=== PATIENT | female | born 1955 | race Caucasian/White ===

== ENCOUNTER 2017-05-03 14:12 | Emergency (ER) | payer OTHER ==
[~2017-05-03] VITALS: Ht 154.9 cm; Wt 113.4 kg
[~2017-05-03 14:12] MED LIST: ACTOS15 MG PO; ADVAIR HFA115 MCG/21 INH; ALBUTEROL SULFATE INH; ALEVE220 MG PO; AMITRIPTYLINE H25 M2 PO; AMITRIPTYLINE H50 M2 PO; AMOXICILLI250 MG/51 PO; ANTIVERT25 MG PO; ASCORBIC ACID250 MG PO; ASPIRIN EC81 M1 PO; ASPIRIN325 PO; ATORVASTATIN CA10 MG PO; AUGMENTIN 875875 MG PO; BACTRIM DS TAB1 EACH PO; CARBIDOPA-LEVO1 EAC3 PO; CARBIDOPA-LEVO1 EAC9 PO; CEPHALEXIN 500500 M1; CIPROFLOXACIN500 MG PO; CLEOCIN HCL300 MG PO; CLINDAMYCIN HC150 MG PO; COLACE100 MG PO; CORDARONE200 MG PO; COREG12.5 MG PO; COZAAR100 MG PO; CYMBALTA60 MG PO; DIGITEK250 MC1 PO; DOXYCYCLINE 10100 MG PO; EC-NAPROSYN500 M1 PO; FAMOTIDINE20 MG PO; FIRST AID ANT28.4 GM TOP; FISH OIL 1,0001 EAC5 PO; FISH OIL 1,001000 M2 PO; FISH OIL SOFTG1 EACH PO; FUROSEMIDE 40 M40 M1 PO; GLUCOPHAGE1000 MG PO; GLUCOPHAGE500 MG PO; GLUMETZA500 PO; GLYBURIDE 2.52.5 M1 PO; GLYBURIDE 5 MG T5 M1 PO; GLYBURIDE 5 MG T5 MG PO; HYDROCODON-ACE1 EAC5 PO; HYDROCODONE-AP1 EAC6 PO; K-DUR 20 MEQ T20 MEQ PO; KEFLEX500 MG PO; KLOR-CON 1010 MEQ PO; LANSOPRAZOLE30 MG PO; LASIX 20 MG TAB20 MG PO; LASIX 80 MG TAB80 MG PO; LEVEMIR FL100 UNIT/1 SUBQ; LEVOTHROID150 MC1 PO; LIPITOR10 MG PO; LORTAB 10 MG-3473 ML PO; LORTAB 5 MG/5001 TA1 PO; LYRICA 50 MG50 MG PO; LYRICA 75 MG CA75 MG PO; METFORMIN HCL500 MG PO; METOPROLOL SUCC25 M1 PO; MILK OF MA2400 MG/10; MIRAPEX0.5 MG PO; MOBIC15 MG PO; NAPROSYN500 MG PO; NORCO 5-325 TA1 EACH PO; NOVOLOG100 UNIT/1; NOVOLOG100 UNIT/1 SUBQ; NYAMYC15 GM TOP; OMEGA-31000 M1 PO; PAXIL10 MG PO; PERCOCET 10-321 EAC1 PO; PERCOCET PO; PRAMIPEXOLE D0.25 MG PO; PRED FORTE 1% EY5 M1 OPHTHALMIC; PREDNISONE 10 M10 MG PO; PREVACID30 MG PO; PROBIOTIC1 EAC1 PO; RANITIDINE 150150 M1 PO; RANITIDINE 150150 MG PO; ROBAXIN 750 MG750 M1 PO; SKELAXIN 800 M800 M1 PO; SYNTHROID150 MCG PO; TYLENOL325 MG PO; VITAMINC500 PO; ZANTAC 150MG T150 MG PO; ZINC SULFATE 2220 M1 PO; ZOCOR20 MG PO; ZOFRAN ODT4 MG PO; ZOLOFT50 MG PO
[2017-05-03 16:18] LABS: ABSOLUTE NEUTROPHILS 3.5 thou/uL (1.4-8.2); BASOPHILS 0.7 % (0.0-2.0); EOSINOPHILS 0.9 % (0.0-3.0); HEMOGLOBIN 11.3 gm/dL (12.0-15.0); MANUAL DIFF NO; MCH 25.1 pg (26.0-34.0); MCHC 31.5 g/dL (28.0-37.0); MCV 79.5 fL (80.0-100.0); MONOCYTES 6.1 % (1.0-8.0); PLATELET COUNT 192 thou/uL (150-400); POLYS 53.3 % (36.0-66.0); RBC 4.53 mil/uL (4.20-5.00); RDW 15.2 % (10.5-14.5); WBC 6.6 thou/uL (4.0-11.0)
[2017-05-03 16:34] LABS: CALCIUM 9.5 mg/dL (8.5-10.1); CREATININE 0.7 mg/dL (0.6-1.0); POTASSIUM 4.1 mmol/L (3.5-5.1)
[2017-05-03 16:40] LABS: ALBUMIN 3.2 g/dL (3.4-5.0); TOTAL BILIRUBIN 0.3 mg/dL (<0.1-1.0); TOTAL PROTEIN 7.1 g/dL (6.4-8.2)
[2017-05-03] MEDS ORDERED: BACTRIM DS TAB1 EACH PO (18:13)
== END 2017-05-03 18:19 | disposition home or self-care (01) ==
LOC: ER 14:12
PROVIDERS: Physician Assistant
DX: S80.811A Abrasion, right lower leg, initial encounter (principal); R10.32 Left lower quadrant pain; E11.9 Type 2 diabetes mellitus without complications; M19.90 Unspecified osteoarthritis, unspecified site; K21.9 Gastro-esophageal reflux disease without esophagitis; I10 Essential (primary) hypertension; E78.00 Pure hypercholesterolemia, unspecified; J45.909 Unspecified asthma, uncomplicated; E03.9 Hypothyroidism, unspecified; Z79.4 Long term (current) use of insulin; Z90.49 Acquired absence of other specified parts of digestive tract; Z87.01 Personal history of pneumonia (recurrent); Z98.890 Other specified postprocedural states; Z87.890 Personal history of sex reassignment; Z88.1 Allergy status to other antibiotic agents; Z88.5 Allergy status to narcotic agent; W22.8XXA Striking against or struck by other objects, initial encounter; Y93.89 Activity, other specified; Y92.89 Other specified places as the place of occurrence of the external cause; Y99.8 Other external cause status

== ENCOUNTER 2017-05-10 09:53 | Inpatient (IN) | payer OTHER ==
[~2017-05-10] VITALS: Ht 154.9 cm; Wt 113.4 kg
--- NOTE | ~2017-05-10 | EKG ---
[place] [address] [facility] [place] [address] ELECTROCARDIOGRAM REPORT Name: FAREED MCFARLANE Room #: 307-P ADM IN M.R.#: [id number] Admission: 05/10/17 Attend Phys: Sal Millan DO Discharge: Date of : 53 Report #: [id number] THIS REPORT FOR: //name// [facility] ED Test Date: 2017-05-10 Test Time: 10:02:09 Pat Name: FAREED MCFARLANE Department: Room: [facility] Gender: F Diet Assistant: WILMER : 1955 Requested By: Isra Dubose Order Number: [id number] MD: Mariano Rowe Measurements Intervals [place] Rate: 47 P: 87 NC: 225 QRS: 9 QRSD: 111 T: 28 QT: 520 QTc: 460 Interpretive Statements Sinus bradycardia Borderline prolonged NC interval Low voltage, extremity leads Abnormal R-wave progression, late transition Compared to ECG 05/15/2016 00:47:54 [address]ons[address] change in the ST and T-wave segments Electronically Signed On 05-11-2017 8:50:38 CDT by Mariano Rowe [email or web address] <ELECTRONICALLY SIGNED> By: Mariano Rowe MD, [facility] 05/11/17 0850 1002 1002 Mariano Rowe MD, [facility] /EPI
--- NOTE | ~2017-05-10 | EKG ---
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: nathaniel : 1955 Requested By: Mariano Rowe Order Number: [id number] MD: Mariano Rowe Measurements Intervals [place] Rate: 47 P: 91 RI: 238 QRS: 51 QRSD: 123 T: 34 QT: 530 QTc: 469 Interpretive Statements Sinus bradycardia Prolonged RI interval Nonspecific T abnormalities, anterior leads Compared to ECG 05/15/2016 00:47:54 No significant change was found Electronically Signed On 05-11-2017 9:03:46 CDT by Mariano Rowe [email or web address] <ELECTRONICALLY SIGNED> By: Mariano Rowe MD, [facility] 05/11/17902 0654 Mariano Rowe MD, [facility] /EPI
--- NOTE | ~2017-05-10 | HC ---
[facility] [place] [address] [place] [address] CONSULTATION Name: FAREED MCFARLANE Room #: 307-P ADM IN .R.#: [id number] Admission: 05/10/17 Attend Phys: Sal Millan DO Discharge: Date of : 53 Report #: [id number] THIS REPORT FOR: //name// CC: FAM unknown Sal Millan REASON FOR CONSULTATION: SVT. 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 Apparently, she had seen Dr. Bryant in the past and he diagnosed her arrhythmia as being AV fernando reentrant tachycardia. She is followed with a lighting engineer at [facility]. She came into the hospital with some dizziness and when she came in, she was noted to be bradycardiac into the 40s. She denies any chest pain or chest tightness. She denies PND or orthopnea. She denies presyncope or syncope. REVIEW OF SYSTEMS: A 12-point review of systems was performed and was negative other than what I mentioned above. PAST MEDICAL HISTORY: Includes SVT, fibromyalgia, diabetes, obstructive sleep apnea, legally blind, arthritis, hysterectomy, cholecystectomy, left repair, tubal ligation, MRSA in 1998, carpal tunnel syndrome, GERD, hypothyroidism, hypertension, hyperlipidemia, asthma, necrotizing fasciitis, pneumonia, gastric sleeve. SOCIAL HISTORY: Does not smoke. FAMILY HISTORY: Noncontributory. ALLERGIES: Include FLEXERIL AND CELEBREX. HOME MEDICATIONS: Include Synthroid, naproxen, atorvastatin, pregabalin, oxycodone, ranitidine, amiodarone 200 mg a day, Skelaxin, Lasix 20 a day, Mirapex, vitamin C and Bactrim 1 tablet q. 12. PHYSICAL EXAMINATION: VITAL SIGNS: Temperature is 36.7, pulse 50, respiration 20, blood pressure 141/69, sats are 95%. GENERAL: She is in no acute distress. HEENT: She is legally blind. Oropharynx is clear. NECK: Supple, no thyromegaly. HEART: Regular rate and rhythm with no murmurs, rubs, gallops. LUNGS: Clear to auscultation bilaterally. ABDOMEN: Soft, nontender, nondistended. EXTREMITIES: There is no clubbing, cyanosis, edema. NEUROLOGIC: Cranial nerves are grossly intact; however, [place] [address] CONSULTATION Name: FAREED MCFARLANE Room #: [facility]#: [id number] Admission: 05/10/17 Attend Phys: Sal Millan DO Discharge: Date of : 53 Report #: [id number] LABORATORY DATA: White count 4.7, hemoglobin 11.9, platelets 206. Coags: INR is 1.0. Chemistry: Sodium 140, potassium 4.2, BUN 18, creatinine 1.0. Troponin is negative x 1. Her TSH was low at 0.008. Random cortisol was 7.1, which is normal. Her EKG showed sinus bradycardia. Telemetry shows sinus bradycardia. Chest x-ray shows no acute process. ASSESSMENT AND PLAN: In summary, the patient is a 61-year-old with history of supraventricular tachycardia, who has been on amiodarone therapy and this has resulted in sinus bradycardia. At this time, I agree with discontinuing the amiodarone therapy. I discussed that I would be happy to see the patient in clinic in 4-6 weeks to see how she is doing off of the amiodarone. We discussed that we could proceed with a supraventricular tachycardia ablation in the future for management of her arrhythmias. Thank you for allowing me to participate in her care. By: [id number] [id number] Moreno Chapman MD /nt
--- NOTE | ~2017-05-10 | 2DMMODE ---
[facility] [address] [place] [address] 2 D/M-MODE ECHOCARDIOGRAM Name: FAREED MCFARLANE Room #: 307-P [facility] IN ..#: [id number] Admission: 05/10/17 Attend Phys: Sal Millan, Discharge: Date of : 53 Date of Service: 05/11/17 1039 Report #: [id number] THIS REPORT FOR: //name// APPROVED REPORT Study performed: 05/11/2017 08:19:40 EXAM: Comprehensive 2D, Doppler, and color-flow Echocardiogram Patient Location: Bedside Room #: [facility] Status: routine BSA: 2.08 HR: 48 bpm BP: 146/55 mmHg Other Information Study Quality: Technically Difficult Indications Bradycardia 2D Dimensions RVDd: 39.60 mm LVEF(%): 47.40 (>50%) IVSd: 10.99 (7-11mm) LVOT Diam: 20.01 (18-24mm) LVDd: 53.28 mm PWd: 11.45 (7-11mm) Ascending Ao: 28.91 (22-36mm) LVDs: 40.49 (25-40mm) Aortic Root: 30.59 mm Cohn's LVEF: 47.40 % Volumes Left Atrial Volume (Systole) Single Plane 4CH: 60.79 mL Single Plane 2CH: 58.32 mL LA ESV Index: 30.00 mL/m2 LV Strain GL Strain(%): 0.00 Aortic Valve AoV Peak Beto.: 1.63 m/s AO Peak Gr.: 10.77 mmHg LVOT Max P.52 mmHg LVOT Max V: 1.06 m/s YULISSA Vmax: 2.05 cm2 Mitral Valve [facility] [place] [address] 2 D/M-MODE ECHOCARDIOGRAM Name: FAREED MCFARLANE [facility] [id number] Admission: 05/10/17 Attend Phys: aSl Millan, Discharge: Date of : 53 Date of Service: 05/11/17 1039 Report #: [id number] E/A Ratio: 1.1 MV Decel. Time: 241.42 ms MV E Max Beto.: 0.81 m/s MV A Beto.: 0.72 m/s MV PHT: 70.01 ms IVRT: 83.04 ms Pulmonary Vein P Vein S: 0.55 m/s P Vein A: 0.34 m/s P Vein D: 0.60 m/s P Vein A Dur.: 120.0 msec P Vein S/D Ratio: 0.92 Tricuspid Valve TR Peak Beto.: 3.67 m/s RAP Estimate: 5.00 mmHg TR Peak Gr.: 53.87 mmHg PA Pressure: 59.00 mmHg Left Ventricle The left ventricle is normal size. Borderline concentric left ventricular hypertrophy. The left ventricular systolic function is normal. The left ventricular ejection fraction is within the normal range. LVEF is 45-50%. Grade I - abnormal relaxation pattern. Right Ventricle The right ventricle is normal size. The right ventricular systolic function is normal. Atria The left atrium size is normal. Right atrium is dilated. Aortic Valve The aortic valve is not well visualized. No aortic regurgitation is present. There is no aortic valvular stenosis. Mitral Valve The mitral valve is normal in structure. Trace mitral regurgitation. No evidence of mitral valve stenosis. Tricuspid Valve The tricuspid valve is normal in structure. There is trace to mild tricuspid regurgitation. The right atrial pressure is estimated at 5 mmHg. There is moderate pulmonary hypertension with an estimated PAP of 59 mmHg. Pulmonic Valve The pulmonary valve is normal in structure. [place] [address] 2 D/M-MODE ECHOCARDIOGRAM Name: FAREED MCFARLANE Room #: 307-P [facility] IN [facility]#: [id number] Admission: 05/10/17 Attend Phys: Sal Millan, Discharge: Date of : 53 Date of Service: 05/11/17 1039 Report #: [id number] valvular regurgitation. Great Vessels The aortic root is normal in size. The ascending aorta is normal in size. IVC is normal in size and collapses >50% with inspiration. Pericardium Hemodynamically insignificant pericardial effusion noted. <Conclusion> The left ventricle is normal size. LVEF is 45-50%. Right atrium is dilated. The aortic valve is not well visualized. The mitral valve is normal in structure. Trace mitral regurgitation. The tricuspid valve is normal in structure. There is trace to mild tricuspid regurgitation. The right atrial pressure is estimated at 5 mmHg. There is moderate pulmonary hypertension with an estimated PAP of 59 mmHg. The pulmonary valve is normal in structure. Hemodynamically insignificant pericardial effusion noted. <ELECTRONICALLY SIGNED> By: Sheldon Gloria MD 05/11/17 1039 1039 1039 Sheldon Gloria MD /INF
[2017-05-10 09:54] VITALS: BP 154/43
[2017-05-10 10:47] LABS: HEMATOCRIT 35.8 % (37.0-47.0); HEMOGLOBIN 11.6 gm/dL (12.0-15.0); MCH 25.3 pg (26.0-34.0); MCHC 32.5 g/dL (28.0-37.0); MCV 77.7 fL (80.0-100.0); RBC 4.6 mil/uL (4.20-5.00); RDW 15.3 % (10.5-14.5); WBC 5.6 thou/uL (4.0-11.0)
[2017-05-10 12:06] LABS: ANION GAP 10 mmol/L (7-16); APTT 22.8 Seconds (24.5-32.8); BUN 24 mg/dL (7-18); CALCIUM 9.6 mg/dL (8.5-10.1); CHLORIDE 106 mmol/L (98-107); CO2 23 mmol/L (21-32); CREATININE 1.2 mg/dL (0.6-1.0); GLUCOSE 88 mg/dL (74-106); POTASSIUM 4.2 mmol/L (3.5-5.1); PROTIME 10.3 Seconds (9.3-11.4); SODIUM 139 mmol/L (136-145); TROPONIN-I < 0.04 ng/mL (<0.04-0.07)
[2017-05-10 14:09] VITALS: BP 113/32
[2017-05-10 14:45] VITALS: BP 144/55
[2017-05-10 20:10] VITALS: BP 135/66
[2017-05-10 20:10] LABS: FREE T4 1.36 ng/dL (0.82-1.77)
[2017-05-11 04:38] VITALS: BP 146/55
[2017-05-11 06:20] LABS: ABSOLUTE NEUTROPHILS 1.8 thou/uL (1.4-8.2); BASOPHILS 0.9 % (0.0-2.0); HEMATOCRIT 37.1 % (37.0-47.0); HEMOGLOBIN 11.9 gm/dL (12.0-15.0); LYMPHOCYTES 51.5 % (24.0-44.0); MCH 25.2 pg (26.0-34.0); MCV 78.8 fL (80.0-100.0); MONOCYTES 6.9 % (1.0-8.0); PLATELET COUNT 206 thou/uL (150-400); POLYS 38.7 % (36.0-66.0); RDW 15.4 % (10.5-14.5); WBC 4.7 thou/uL (4.0-11.0)
[2017-05-11 06:22] LABS: MANUAL DIFF NO
[2017-05-11 06:34] LABS: CALCIUM 9.3 mg/dL (8.5-10.1); POTASSIUM 4.2 mmol/L (3.5-5.1)
[2017-05-11 08:00] VITALS: BP 141/69
[2017-05-11 11:58] VITALS: BP 141/69
== END 2017-05-11 17:15 | disposition home or self-care (01) | DRG 309 ==
LOC: ER 09:53 → EROBS 13:25 → 3N 14:02 → ENTRNSPT 05-11 16:50 → 3N 05-11 17:15
PROVIDERS: Emergency Medicine; Family Medicine
DX: R00.1 Bradycardia, unspecified (principal); I50.30 Unspecified diastolic (congestive) heart failure; E11.9 Type 2 diabetes mellitus without complications; M19.90 Unspecified osteoarthritis, unspecified site; K21.9 Gastro-esophageal reflux disease without esophagitis; E03.9 Hypothyroidism, unspecified; I10 Essential (primary) hypertension; E78.00 Pure hypercholesterolemia, unspecified; G47.33 Obstructive sleep apnea (adult) (pediatric); H54.8 Legal blindness, as defined in USA; Z83.3 Family history of diabetes mellitus; Z79.899 Other long term (current) drug therapy; Z87.891 Personal history of nicotine dependence; Z79.4 Long term (current) use of insulin; Z90.710 Acquired absence of both cervix and uterus; Z90.49 Acquired absence of other specified parts of digestive tract; Z90.722 Acquired absence of ovaries, bilateral; Z86.14 Personal history of Methicillin resistant Staphylococcus aureus infection; Z90.3 Acquired absence of stomach [part of]; Z88.8 Allergy status to other drugs, medicaments and biological substances; Z82.49 Family history of ischemic heart disease and other diseases of the circulatory system
CPT/HCPCS: 10096

== ENCOUNTER 2017-07-22 12:03 | Emergency (ER) | payer OTHER ==
[~2017-07-22] VITALS: Ht 154.9 cm; Wt 108.9 kg
[2017-07-22 12:45] LABS: CALCIUM 9.3 mg/dL (8.5-10.1); POTASSIUM 4.5 mmol/L (3.5-5.1)
== END 2017-07-22 13:37 | disposition home or self-care (01) ==
LOC: ER 12:03
PROVIDERS: Nurse Practitioner
DX: G25.81 Restless legs syndrome (principal); M79.7 Fibromyalgia; E11.9 Type 2 diabetes mellitus without complications; M19.90 Unspecified osteoarthritis, unspecified site; Z90.49 Acquired absence of other specified parts of digestive tract; E03.9 Hypothyroidism, unspecified; I10 Essential (primary) hypertension; E78.00 Pure hypercholesterolemia, unspecified; J45.909 Unspecified asthma, uncomplicated; Z88.6 Allergy status to analgesic agent; Z88.2 Allergy status to sulfonamides; Z87.891 Personal history of nicotine dependence

== ENCOUNTER 2018-07-08 11:12 | Observation (INO) | payer OTHER ==
[~2018-07-08] VITALS: Ht 154.9 cm; Wt 114.0 kg
--- NOTE | ~2018-07-08 | D ---
[facility] [address] [place] [address] DISCHARGE SUMMARY Name: FAREED MCFARLANE Room #: 200-I [facility] M.R.#: [id number] Admission: 07/08/18 Attend Phys: Moreno Chapman MD Discharge: Date of : 53 Report #: [id number] THIS REPORT FOR: //name// CC: FAM unknown Emmanuel James Chapman DISCHARGE DIAGNOSIS: Supraventricular tachycardia secondary to atypical atrioventricular fernando reentrant tachycardia. PROCEDURES PERFORMED: SVT ablation. HISTORY: The patient is a 63-year-old patient who is legally blind and has had longstanding supraventricular tachycardia, previously on amiodarone therapy, which I stopped in the past due to symptomatic bradycardia. She recently started having palpitations and was seen in my clinic and was noted to be in SVT that was able to be terminated with a carotid massage. She was here for an SVT ablation. SVT ablation was successful and she was rendered noninducible. Prior to the ablation, she was very easily inducible with a slow SVT at around 100 beats per minute. HOSPITAL COURSE: The patient was monitored in the CCU overnight. There were no issues. On the day of discharge, she denied any chest pain, shortness of breath or pain. PHYSICAL EXAMINATION: Her heart was regular rate and rhythm. Lungs were clear to auscultation bilaterally and her groins showed no significant bruising or hematoma. On telemetry, she remained in sinus rhythm and sinus bradycardia throughout the night. As such, she was deemed stable for discharge home. She will continue with her same home medications, but we will discontinue her metoprolol. She will be seen in the clinic in 2 weeks for a followup visit and see me in 3 months. By: 0833 1308 Moreno Chapman MD /nt
--- NOTE | ~2018-07-08 | P ---
[facility] [place] [address] [place] [address] PROCEDURE REPORT Name: FAREED MCFARLANEINE Room #: 200-I [facility] Lynsey#: [id number] Admission: 07/08/18 Attend Phys: Moreno Chapman MD Discharge: Date of : 53 Report #: [id number] THIS REPORT FOR: //name// CC: FAM lorena Emmanuel James Chapman PREOPERATIVE DIAGNOSIS: Supraventricular tachycardia. POSTOPERATIVE DIAGNOSIS: Atypical atrioventricular fernando reentrant tachycardia. PROCEDURES PERFORMED: 1. SVT ablation, CPT code 93047. 2. EP with left atrial pacing and recording, CPT code 60926. 3. Program stimulation and pacing after IV drug, CPT code 84795. 4. 3D mapping, CPT code 87954. HISTORY: The patient is a 63-year-old legally blind patient who was previously placed on amiodarone for SVT and was admitted with symptomatic bradycardia in the past. I stopped her amiodarone over a year ago and placed her on some beta blockers and she presented with recurrent supraventricular tachycardia to my clinic, which was easily inducible and would easily terminate with a carotid massage. She is here for EP study and ablation. ANESTHESIA: The patient underwent MAC anesthesia. No anesthesia related complications. PROCEDURE: The patient underwent informed consent. We discussed the details of the procedure including the risks, which include but not limited to bleeding, vascular damage, cardiac perforation as well as stroke, RI and damage to the stillaguamish conduction system that could require permanent pacemaker. She understood these risks and was willing to proceed. As such, the patient was brought to the EP laboratory in a fasting and unsedated state and prepped and draped in a sterile fashion. Next, I obtained access to the right femoral vein x 3 and the left femoral vein x 1. In the right femoral vein, I placed an 8-Romanian and two 6-Romanian short sheaths. In the left femoral vein, I placed a 7-Romanian short sheath. Under fluoroscopy, I placed 3 quadripolar catheters at the HRA, His and RV positions. In terms of the coronary sinus, her anatomy was quite challenging. I could get the decapolar catheter to go into the coronary sinus, but it would not stay in there. Her heart was quite rotated, which I assume was from some RV enlargement as well as right atrial enlargement and her morbid obesity. As such, I could not place the decapolar catheter into the CS. Of note, just while placing catheters the patient would go into a slow SVT that looked like AVNRT. At baseline, the patient was in sinus rhythm with a sinus cycle length of 835 milliseconds, NV interval 160 milliseconds, QRS duration 95 milliseconds, QT interval 410 [facility] [address] [place] [address] PROCEDURE REPORT Name: FAREED MCFARLANE Room #: 200-I [facility]#: [id number] Admission: 07/08/18 Attend Phys: Moreno Chapman MD Discharge: Date of : 53 Report #: [id number], AH interval 160 milliseconds, and HV interval of 52 milliseconds. Next, atrial pacing was performed from the HRA and the patient went into SVT with a tachycardia cycle length of 560 milliseconds and a septal VA time of 95 milliseconds. Initially, I could not entrain this and it would terminate and I could easily induce it with any atrial pacing or single atrial extrastimuli. Eventually, I was able to entrain and demonstrate a VAHV response consistent with an atypical AV fernando reentrant tachycardia. The PPI minus tachycardia cycle length after entrainment was 150 milliseconds, which was also consistent with atypical AV fernando reentrant tachycardia. Next, isoproterenol infusion was initiated and VA block was noted at 440 milliseconds. VA ERP was noted at 400 milliseconds at a [address] cycle length. VA conduction was both midline and decremental. Isoproterenol was turned off and the patient was prepped for 3D mapping and SVT ablation. Next, I created a detailed 3D geometry of the right atrium with specific emphasis of the His bundle, the slow pathway region and the coronary sinus. Once I was able to delineate the coronary sinus anatomy, I again attempted to place the decapolar catheter in this vessel and it just would not sit. As such, the decapolar catheter was just left in the right atrium, but using my 3D geometry I used this to kind of help me determine the slow pathway anatomic region. I performed a total of 13 ablation lesions. The first several lesions were quite low. It had nice signals, but there was no junctionals. I then on lesions 12 and 13, I finally got nice slow junctionals that were 60 seconds in duration during each burn. To find this site, I deflected from the His region and I found a very sharp and fractionated atrial signal with a large ventricular electrogram, which appeared to be just at the superior aspect of the coronary sinus ostium. I was around 11-12 mm below the closest His signal. Before these two last lesions, the patient continued to have easily inducible SVT and in fact the patient would go into SVT with some of the garduno as well. POST-ABLATION TESTING: Post-ablation, AV block was noted at 570 milliseconds. This was the first time I could demonstrate AV block because she was no longer going into SVT. AV fernando ERP was noted at 470 milliseconds at a [address] cycle length. There were rare single AV fernando echoes. Next, isoproterenol infusion was reinitiated at 1 mcg per minute and AV block was noted at 430 milliseconds, VA block was noted at 470 milliseconds and VA ERP was noted at 370 milliseconds at a [address] cycle length. I continued to perform aggressive atrial pacing maneuvers and the patient was no longer inducible for SVT. Post-ablation, the patient was in a sinus rhythm with sinus cycle length of 885 milliseconds, NV interval 203 milliseconds, QRS duration 90 milliseconds, QT interval 422 milliseconds, AH interval 119 milliseconds and HV interval of 52 milliseconds. As such, the procedure was concluded. Catheters and sheaths were pulled. Hemostasis was obtained and the patient awoke neurologically and hemodynamically intact with no complications and no significant bleeding. [facility] [address] [place] [address] PROCEDURE REPORT Name: MAEVEFAREED JAREN [id number] Admission: 07/08/18 Attend Phys: Moreno Chapman MD Discharge: Date of : 53 Report #: [id number] CONCLUSIONS: 1. Successful SVT ablation with successful ablation of atypical AV fernando reentrant tachycardia. 2. Normal SA fernando function. 3. Normal AV fernando function. 4. Normal His-Purkinje function. 5. Challenging coronary sinus anatomy. By: [id number] [id number] Moreno Chapman MD /nt
[2018-07-08] MEDS ORDERED: SYNTHROID125 MC1 PO (11:46)
[2018-07-08] MEDS ORDERED: OXYCODONE HCL 55 MG PO (11:47)
[2018-07-08] MEDS ORDERED: MIRAPEX0.75 MG PO (11:48)
[2018-07-08] MEDS ORDERED: MIRAPEX1 MG PO (11:49)
[2018-07-08] MEDS ORDERED: LYRICA 50 MG50 MG PO (11:50)
[2018-07-08] MEDS ORDERED: ASPIR 8181 M1 PO (11:50)
[2018-07-08] MEDS ORDERED: METOPROLOL SUCC25 M1 PO (11:51)
[2018-07-08] MEDS ORDERED: COLACE100 MG PO (11:51)
[2018-07-08] MEDS ORDERED: KLOR-CON 10 ER10 MEQ PO (11:52)
[2018-07-08] MEDS ORDERED: SENNA-DOCUSATE1 EAC1 PO (11:53)
[2018-07-08] MEDS ORDERED: PROZAC20 MG PO (11:55)
[2018-07-08 11:56] VITALS: BP 138/56
[2018-07-08 11:57] LABS: ABSOLUTE NEUTROPHILS 4.3 thou/uL (1.4-8.2); BASOPHILS 0.9 % (0.0-2.0); EOSINOPHILS 1.6 % (0.0-3.0); HEMATOCRIT 39.2 % (37.0-47.0); HEMOGLOBIN 12.5 gm/dL (12.0-15.0); LYMPHOCYTES 35.6 % (24.0-44.0); MCH 24.9 pg (26.0-34.0); MCV 77.8 fL (80.0-100.0); MONOCYTES 5.9 % (1.0-8.0); PLATELET COUNT 197 thou/uL (150-400); RBC 5.04 mil/uL (4.20-5.00); RDW 16.8 % (10.5-14.5); WBC 7.7 thou/uL (4.0-11.0)
[2018-07-08 12:01] LABS: CALCIUM 9.6 mg/dL (8.5-10.1); CREATININE 0.8 mg/dL (0.6-1.0); POTASSIUM 3.6 mmol/L (3.5-5.1)
[2018-07-08 12:06] LABS: ALBUMIN 3.6 g/dL (3.4-5.0); TOTAL BILIRUBIN 0.6 mg/dL (<0.1-1.0); TOTAL PROTEIN 7.7 g/dL (6.4-8.2)
[2018-07-08] MEDS ORDERED: OMEPRAZOLE20 M2 PO (12:08)
[2018-07-08 12:43] LABS: PROTIME 10.9 Seconds (9.3-11.4)
[2018-07-08 19:30] VITALS: BP 120/47
[2018-07-08 23:45] VITALS: BP 130/71
[2018-07-09 04:14] VITALS: BP 138/68
[2018-07-09 09:05] VITALS: BP 182/80
[2018-07-09 11:13] VITALS: BP 129/65
[2018-07-09 12:22] VITALS: BP 129/65
== END 2018-07-09 13:10 | disposition home or self-care (01) ==
LOC: CATH 11:12 → 2N 16:55 → CATH 16:56 → 2N 16:56 → ENTRNSPT 07-09 12:59 → EDTRNSPTSTS 07-09 13:05 → 2N 07-09 13:10
PROVIDERS: Internal Medicine Cardiovascular Disease
DX: I47.1 Supraventricular tachycardia (principal); I11.0 Hypertensive heart disease with heart failure; I50.9 Heart failure, unspecified; E11.40 Type 2 diabetes mellitus with diabetic neuropathy, unspecified; R53.83 Other fatigue; J45.909 Unspecified asthma, uncomplicated; I48.91 Unspecified atrial fibrillation; I87.2 Venous insufficiency (chronic) (peripheral); M19.90 Unspecified osteoarthritis, unspecified site; G47.33 Obstructive sleep apnea (adult) (pediatric); E66.01 Morbid (severe) obesity due to excess calories; E03.9 Hypothyroidism, unspecified; E78.5 Hyperlipidemia, unspecified; R00.1 Bradycardia, unspecified; K21.9 Gastro-esophageal reflux disease without esophagitis; Z98.890 Other specified postprocedural states; Z90.49 Acquired absence of other specified parts of digestive tract; Z90.710 Acquired absence of both cervix and uterus; Z79.899 Other long term (current) drug therapy; Z86.14 Personal history of Methicillin resistant Staphylococcus aureus infection; Z79.82 Long term (current) use of aspirin; Z87.891 Personal history of nicotine dependence
CPT/HCPCS: 10081; 62110; 62900; 70005

== ENCOUNTER 2018-09-03 07:50 | Inpatient (IN) | payer OTHER ==
[~2018-09-03] VITALS: Ht 154.9 cm; Wt 107.0 kg
[~2018-09-03 07:50] MED LIST changes: +ASPIR 8181 M1 PO; +KLOR-CON 10 ER10 MEQ PO; +MIRAPEX0.75 MG PO; +MIRAPEX1 MG PO; +OMEPRAZOLE20 M2 PO; +OXYCODONE HCL 55 MG PO; +PROZAC20 MG PO; +SENNA-DOCUSATE1 EAC1 PO; +SYNTHROID125 MC1 PO
[2018-09-03 07:52] VITALS: BP 139/69
[2018-09-03 08:25] LABS: URINE BILIRUBIN NEGATIVE (Negative); URINE BLOOD NEGATIVE (Negative); URINE CLARITY CLEAR; URINE COLOR YELLOW; URINE GLUCOSE-RANDOM* NEGATIVE (Negative); URINE KETONES NEGATIVE (Negative); URINE LEUKOCYTES-REFLEX NEGATIVE (Negative); URINE NITRITE-REFLEX NEGATIVE (Negative); URINE PROTEIN (DIPSTICK) NEGATIVE (Negative); URINE UROBILINOGEN 0.2 E.U./dl (0.2-1.0)
[2018-09-03 08:51] LABS: ABSOLUTE NEUTROPHILS 7.8 thou/uL (1.4-8.2); BASOPHILS 0.5 % (0.0-2.0); EOSINOPHILS 0.3 % (0.0-3.0); HEMATOCRIT 37.3 % (37.0-47.0); HEMOGLOBIN 12.2 gm/dL (12.0-15.0); MCHC 32.6 g/dL (28.0-37.0); MCV 76.8 fL (80.0-100.0); MONOCYTES 2.4 % (1.0-8.0); PLATELET COUNT 158 thou/uL (150-400); POLYS 90.8 % (36.0-66.0); RBC 4.85 mil/uL (4.20-5.00); RDW 15.7 % (10.5-14.5); WBC 8.6 thou/uL (4.0-11.0)
[2018-09-03 08:56] LABS: CALCIUM 8.7 mg/dL (8.5-10.1); CREATININE 0.9 mg/dL (0.6-1.0); POTASSIUM 3.7 mmol/L (3.5-5.1)
[2018-09-03 09:03] LABS: TOTAL BILIRUBIN 0.3 mg/dL (<0.1-1.0); TOTAL PROTEIN 6.5 g/dL (6.4-8.2)
[2018-09-03 12:19] VITALS: BP 123/52
[2018-09-03 12:27] VITALS: BP 128/53
[2018-09-03 12:47] VITALS: BP 115/56
--- NOTE | 2018-09-03 16:01 | NUR ---
ADMISSION ASSESMENT COMPLETED. VSS. A/O/ANXIOUS/TEARFUL. C/O PAIN MANAGED BY MEDS ORDERED. NO NOTED SOA- O2 IN PLACE. ASSIST WHEN UP. PT RESTING IN BED. CALL LIGHT IN REACH. WILL CONT. TO MONITOR.
[2018-09-03 16:33] VITALS: BP 131/63
--- NOTE | 2018-09-03 18:03 | NUR ---
UNABLE TO RECONCILE RX AT THIS TIME. PT DOES NOT HAVE LIST OF HOME MEDS AVAILABLE AND DOES NOT KNOW ALL OF THEM.
[2018-09-03 20:17] VITALS: BP 137/71
--- NOTE | 2018-09-04 02:59 | NUR ---
ASSUMED CARE OF PATIENT AROUND 1900. PATIENT TEARFUL ABOUT VARIOUS ASPECTS OF HOME LIFE. ENCOURAGED PATIENT TO VOICE CONCERNS AND NEEDS. PATIENT ABLE TO EXPRESS HERSELF ABOUT STRESS AND RECENT LOSS, AFTER SOME TIME, PATIENT SEEMED TO OBTAIN SOME RELIEF. PT C/O RESTLESSNESS IN LEGS AND PAIN, MEDICATIONS ADMINISTERED AND PT ABLE TO REST MOST OF NIGHT. PROGRESS MADE TOWARD GOALS, WILL CONTINUE TO MONITOR.
[2018-09-04 04:26] LABS: ABSOLUTE NEUTROPHILS 10.9 thou/uL (1.4-8.2); BASOPHILS 0.1 % (0.0-2.0); HEMATOCRIT 33.2 % (37.0-47.0); HEMOGLOBIN 10.6 gm/dL (12.0-15.0); LYMPHOCYTES 6.4 % (24.0-44.0); MCH 24.8 pg (26.0-34.0); MCV 77.6 fL (80.0-100.0); MONOCYTES 2.1 % (1.0-8.0); PLATELET COUNT 157 thou/uL (150-400); POLYS 91.4 % (36.0-66.0); RBC 4.28 mil/uL (4.20-5.00); RDW 15.8 % (10.5-14.5); WBC 11.9 thou/uL (4.0-11.0)
[2018-09-04 04:33] LABS: CREATININE 0.7 mg/dL (0.6-1.0); MAGNESIUM 1.6 mg/dL (1.8-2.4); POTASSIUM 3.7 mmol/L (3.5-5.1)
[2018-09-04 07:28] VITALS: BP 132/64
--- NOTE | 2018-09-04 12:01 | NUR ---
ASSESSMENT: CM REVIEWED CHART AND MET WITH PATIENT AT THE BEDSIDE. PT IS ALERT AND ORIENTED X4. PT REPORTS SHE LIVES IN A HOUSE WITH HER . PT REPORTS THAT THEY HAVE TWO STEPS TO ENTER THE HOME WITH HANDRAILS. PT REPORTS ONCE INSIDE SHE DOES NOT HAVE TO USE ANY STEPS AND DOES NOT GO INTO THE BASEMENT. PT REPORTS SHE AMBULATES INDEPENDENTLY BUT ALSO HAS A ROLLATER WALKER AT HOME IF NEEDED. PT REPORTS HAVING A GRAB BAR IN THE SHOWER AND IS INDEPENDENT WITH ADLS. PT STATES SHE HAS A BIPAP AT HOME. PT HAS MEDICAID AND HAS A HELPER WHO COMES IN TO ASSIST WITH CLEANING AND REPORTS A NURSE ALSO COMES AROUND ONCE A WEEK. CM WILL CONTINUE TO FOLLOW TO ASSIST NEEDED.
--- NOTE | 2018-09-04 15:05 | NUR ---
WOUND CONSULT; ASSESSMENT COMPLETED OF AREAS OF CONCERN THE PANNOUS, BILATERAL LE(S) AND THE SACRUM. THE PANNOUS AREAS LOOK MUCH IMPROVED SINCE ADMISSION PICTURES. BILATERAL LOWER EXTREMITIES; HAS S/S CONSISTANT WITH VENOUS INSUFFICENCY, EDEMA, HEMOSIDERIN STAINING AND MILD EDEMA. THE SACRUM/COCCYX AREAS HAVE SMALL AREAS OPEN, THT ARE PINK WITH SCANT DRINAGE SEEN. RECOMMENDATION; CLEANSE SACRUM WITH NS/WOUND CLEANSER, APPLY ZGUARD DAILY/PRN. PANNOUS AREAS MANAGED WITH SOAP/WATER AND THOROUGHLY DRYING. DISCUSSED WITH RN
[2018-09-04] MEDS ORDERED: MUCINEX600 MG PO (16:33)
[2018-09-04] MEDS ORDERED: LEVAQUIN 750 M750 MG PO (16:34)
[2018-09-04] MEDS ORDERED: PREDNISONE 10 M10 MG PO (16:34)
[2018-09-04 16:39] VITALS: BP 132/64
[2018-09-04 17:28] VITALS: BP 151/60
--- NOTE | 2018-09-04 19:52 | NUR ---
DC ORDERS RECIEVED, IV REMOVED FROM L AC, SCRIPTS, FU APPOINTMENT, AND DC INSTRUCTIONS REVIEWED WITH PT. W/C TRANSPORTATION WAS PROVIDED BY PT.
== END 2018-09-04 19:09 | disposition home or self-care (01) | DRG 193 ==
LOC: ER 07:50 → EROBS 08:44 → 3W 12:28
PROVIDERS: Emergency Medicine; Nurse Practitioner; ADMIT Hospitalist
DX: J18.1 Lobar pneumonia, unspecified organism (principal); J96.01 Acute respiratory failure with hypoxia; Z68.41 Body mass index [BMI] 40.0-44.9, adult; I10 Essential (primary) hypertension; G47.33 Obstructive sleep apnea (adult) (pediatric); F32.9 Major depressive disorder, single episode, unspecified; M19.90 Unspecified osteoarthritis, unspecified site; E03.9 Hypothyroidism, unspecified; F41.9 Anxiety disorder, unspecified; K21.9 Gastro-esophageal reflux disease without esophagitis; E66.9 Obesity, unspecified; H54.8 Legal blindness, as defined in USA; E78.5 Hyperlipidemia, unspecified; M79.7 Fibromyalgia; Z86.14 Personal history of Methicillin resistant Staphylococcus aureus infection; Z88.8 Allergy status to other drugs, medicaments and biological substances; Z90.710 Acquired absence of both cervix and uterus; Z90.722 Acquired absence of ovaries, bilateral; Z90.49 Acquired absence of other specified parts of digestive tract; Z79.899 Other long term (current) drug therapy
CPT/HCPCS: 10879

== ENCOUNTER → 2019-01-14 | Outpatient (CLI) | payer OTHER ==
[~2019-01-14] MED LIST changes: +LEVAQUIN 750 M750 MG PO; +MUCINEX600 MG PO
== END ==
LOC: MRI 09:37
DX: M47.27 Other spondylosis with radiculopathy, lumbosacral region (principal); M51.16 Intervertebral disc disorders with radiculopathy, lumbar region; M48.07 Spinal stenosis, lumbosacral region; M51.27 Other intervertebral disc displacement, lumbosacral region; M43.17 Spondylolisthesis, lumbosacral region; W19.XXXA Unspecified fall, initial encounter

== ENCOUNTER → 2019-03-28 | Outpatient (CLI) | payer OTHER | LOC: ULTRA 02-05 12:09 | DX: M43.17 Spondylolisthesis, lumbosacral region (principal); M41.86 Other forms of scoliosis, lumbar region; M79.604 Pain in right leg; M62.838 Other muscle spasm ==

== ENCOUNTER 2019-06-01 12:23 | Inpatient (IN) | payer OTHER ==
[~2019-06-01] VITALS: Ht 154.9 cm; Wt 113.9 kg
[2019-06-01 12:24] VITALS: BP 92/43
[2019-06-01 12:51] LABS: HEMATOCRIT 34.6 % (37.0-47.0); HEMOGLOBIN 10.6 gm/dL (12.0-15.0); MCH 21.8 pg (26.0-34.0); MCHC 30.8 g/dL (28.0-37.0); MCV 70.7 fL (80.0-100.0); RBC 4.89 mil/uL (4.20-5.00); RDW 18.5 % (10.5-14.5); WBC 10.9 thou/uL (4.0-11.0)
[2019-06-01 13:05] LABS: ANION GAP 13 mmol/L (7-16); BUN 18 mg/dL (7-18); CALCIUM 9.1 mg/dL (8.5-10.1); CHLORIDE 105 mmol/L (98-107); CO2 24 mmol/L (21-32); GLUCOSE 120 mg/dL (74-106); POTASSIUM 3.6 mmol/L (3.5-5.1); SODIUM 142 mmol/L (136-145)
[2019-06-01 13:08] LABS: TROPONIN-I <0.06 ng/mL (<0.06)
[2019-06-01 13:32] LABS: BE(vivo) -1.8 mmol/L (-2 to +3); PCO2 39.2 mmHg (35.0-45.0); PO2 70.9 mmHg (80.0-100.0); pH 7.386 (7.360-7.450); sO2 94.1 % (92.0-98.0)
[2019-06-01 14:13] VITALS: BP 90/45
[2019-06-01 20:59] VITALS: BP 115/49
[2019-06-01 21:18] VITALS: BP 128/44
[2019-06-01] MEDS ORDERED: OXYBUTYNIN 5 MG5 M2 PO (23:18)
[2019-06-01] MEDS ORDERED: NORVASC5 MG PO (23:20)
[2019-06-01] MEDS ORDERED: TOPROL XL25 MG PO (23:21)
[2019-06-01] MEDS ORDERED: MIRALAX17 GM PO (23:23)
[2019-06-01] MEDS ORDERED: COLACE100 MG PO (23:24)
[2019-06-01] MEDS ORDERED: ERGOCALCIF50000 UNIT PO (23:25)
[2019-06-02 00:39] VITALS: BP 105/35
--- NOTE | 2019-06-02 04:52 | NUR ---
PT WAS 2200 ADMIT FROM ER. FALL PRECAUTIONS IN PLACE PT IS LEGALLY BLIND IN BOTH EYES. PT AND ARE BOTH BLIND AND PERFORM FULL ADLS IN HOME SETTING. PT IS A/O X4 AMBULATES WITH WALKING CANE. MED REC COMPLETED, CARE PLAN PUT IN PLACE WITH APPROPRIATE DATES, AND POC PROGRESSING WITH IVF AND IVPB. ONLY COMPLAINT WAS CHRONIC PAIN IN THE BACK AND ASKED FOR PAIN MEDICATION. HOURLY ROUNDING.
[2019-06-02 04:57] LABS: HEMATOCRIT 28.6 % (37.0-47.0); HEMOGLOBIN 8.8 gm/dL (12.0-15.0); MCH 21.9 pg (26.0-34.0); MCHC 30.7 g/dL (28.0-37.0); MCV 71.3 fL (80.0-100.0); RBC 4.01 mil/uL (4.20-5.00); RDW 18.3 % (10.5-14.5); WBC 12.1 thou/uL (4.0-11.0)
[2019-06-02 07:35] VITALS: BP 131/71
[2019-06-02 11:21] VITALS: BP 118/57
--- NOTE | 2019-06-02 14:00 | 2DMMODE ---
[facility] [address] [place] [address] 2 D/M-MODE ECHOCARDIOGRAM Name: FAREED MCFARLANE Room #: 359-P ADM IN M.R.#: [id number] Admission: 06/01/19 Attend Phys: Rj King Discharge: Date of : 53 Report #: [id number] THIS REPORT FOR: //name// APPROVED REPORT Study performed: 06/02/2019 13:20:26 EXAM: Comprehensive 2D, Doppler, and color-flow Echocardiogram Patient Location: Bedside Room #: 359 Status: routine BSA: 2.06 HR: 92 bpm BP: 118/57 mmHg Rhythm: NSR Other Information Study Quality: Technically Limited Technically limited study due to body habitus, lung disease, inability to position patient. Indications COPD Diabetes Dyspnea Hypertension/HDD 2D Dimensions IVSd: 11.61 (7-11mm) LVOT Diam: 20.48 (18-24mm) LVDd: 45.56 mm PWd: 11.93 (7-11mm) Ascending Ao: 29.28 (22-36mm) LVDs: 27.25 (25-40mm) Aortic Root: 30.38 mm IVC: 15.00 mm Aortic Valve AoV Peak Beto.: 1.57 m/s AO Peak Gr.: 9.86 mmHg LVOT Max P.02 mmHg LVOT Max V: 1.32 m/s YULISSA Vmax: 2.78 cm2 Pulmonary Valve PV Peak Beto.: 1.14 m/s PV Peak Gr.: 5.20 mmHg Left Ventricle The left ventricle is normal size. There is normal LV segmental wall [facility] [address] [place] [address] 2 D/M-MODE ECHOCARDIOGRAM Name: FAREED MCFARLANE Room #: 359-P ADM IN .R.#: [id number] Admission: 06/01/19 Attend Phys: Rj King Discharge: Date of : 53 Report #: [id number] motion. Mild concentric left ventricular hypertrophy. Left ventricular systolic function is hyperdynamic. LVEF is >70%. This study is not technically sufficient to allow evaluation of the LV diastolic function. Right Ventricle The right ventricle is normal size. The right ventricular systolic function is normal. Atria The left atrium size is normal. The right atrium size is normal. Aortic Valve The aortic valve is normal in structure. No aortic regurgitation is present. There is no aortic valvular stenosis. Mitral Valve The mitral valve is normal in structure. There is no mitral valve regurgitation noted. No evidence of mitral valve stenosis. Tricuspid Valve The tricuspid valve is normal in structure. There is no tricuspid valve regurgitation noted. Pulmonic Valve The pulmonary valve is normal in structure. There is no pulmonic valvular regurgitation. Great Vessels The aortic root is normal in size. IVC is normal in size and collapses >50% with inspiration. Pericardium Mild circumferential pericardial effusion. <Conclusion> The left ventricle is normal size. LVEF is >70%. The aortic valve is normal in structure. The mitral valve is normal in structure. The tricuspid valve is normal in structure. [facility] [address] [place] [address] 2 D/M-MODE ECHOCARDIOGRAM Name: FAREED MCFARLANE Room #: 359-P [facility] IN [facility]#: [id number] Admission: 06/01/19 Attend Phys: Rj King Discharge: Date of : 53 Report #: [id number] The pulmonary valve is normal in structure. Mild circumferential pericardial effusion. <ELECTRONICALLY SIGNED> By: Sheldon Gloria MD 06/02/19 1400 1400 1400 Sheldon Gloria MD /INF
[2019-06-02 15:50] VITALS: BP 145/52
--- NOTE | 2019-06-02 16:43 | NUR ---
INITIAL ASSESSMENT: Pt evaluated for d/c planning needs. Reviewed chart and spoke with nurse and pt. Pt is alert and oriented. Pt lives in condo with her . Pt is legally blind. Pt has walker, Bipap and cane at home. Pt denies home health in the past. Pt said she currently has [place] Medicaid and has signed up for Medicare, which will begin on 06/03/19. Notified RN KANNAN. Pt has homemaker services through [place] Medicaid. Pt plans on returning home on d/c from hospital. Will remain available to assist as needed.
--- NOTE | 2019-06-02 16:55 | NUR ---
pt is A&OX3, but pt is blind and she needs help all ADL, PT is continuing IV fluid , IV abx and o2 3-4 l/min/nc, pt's vs and o2sat are stable , pt has SOB with activities, pt gets up with assist to use BSC, PT is progressing toward care plan goals.
[2019-06-02 19:24] VITALS: BP 122/52
[2019-06-03 03:17] VITALS: BP 145/67
[2019-06-03 08:46] VITALS: BP 146/71
[2019-06-03 09:32] LABS: HEMATOCRIT 32.7 % (37.0-47.0); HEMOGLOBIN 9.7 gm/dL (12.0-15.0); MCH 21.6 pg (26.0-34.0); MCHC 29.6 g/dL (28.0-37.0); PLATELET COUNT 237 thou/uL (150-400); RBC 4.49 mil/uL (4.20-5.00); RDW 19.2 % (10.5-14.5); WBC 18.4 thou/uL (4.0-11.0)
[2019-06-03 09:44] LABS: ALBUMIN 2.8 g/dL (3.4-5.0); CALCIUM 9.2 mg/dL (8.5-10.1); CREATININE 0.8 mg/dL (0.6-1.0); MAGNESIUM 1.7 mg/dL (1.8-2.4); PHOSPHORUS 2.3 mg/dL (2.5-4.9); POTASSIUM 3.9 mmol/L (3.5-5.1); TOTAL BILIRUBIN 0.2 mg/dL (<0.1-1.0); TOTAL PROTEIN 7.2 g/dL (6.4-8.2)
[2019-06-03 09:58] LABS: ABSOLUTE NEUTROPHILS 17.3 thou/uL (1.4-8.2); ANISOCYTOSIS 2+; MICROCYTES 1+; MYELOCYTES 1 %
[2019-06-03 09:59] LABS: HYPOCHROMASIA 1+
[2019-06-03 12:14] VITALS: BP 147/66
--- NOTE | 2019-06-03 13:58 | EKG ---
[address] [address] ELECTROCARDIOGRAM REPORT Name: FAREED MCFARLANE Room #: 359-P ADM IN M.R.#: [id number] Admission: 06/01/19 Attend Phys: Rj King MD Discharge: Date of : 53 Report #: [id number] THIS REPORT FOR: //name// 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: TESFAYE : 1955 Requested By: Isra Dubose Order Number: [id number] MD: Moreno Chapman Measurements Intervals [place] Rate: 60 P: 221 [place]: 203 QRS: 81 QRSD: 113 T: 32 QT: 416 QTc: 416 Interpretive Statements Sinus and ectopic atrial rhythm Borderline intraventricular conduction delay Low voltage, extremity and precordial leads Compared to ECG 05/11/2017 06:54:44 Electronically Signed On 06-03-2019 13:58:19 CDT by Moreno Chapman [email or web address] <ELECTRONICALLY SIGNED> By: Moreno Chapman MD 06/03/19 1358 [id number] [id number] Moreno Chapman MD /EPI
--- NOTE | 2019-06-03 14:35 | NUR ---
SW reviewed chart and spoke with nursing and attending physician. Pt is progressing towards goals for discharge. SW notified that pt's Medicare is primary effective today, and [place]-Medicaid is secondary. SW met with pt at bedside. Discussed insurance with pt. Pt verbalized understanding. Pt states that she was not on O2 prior to admission. Therapy to be ordered to evaluate pt for discharge needs. SW is following to assist as needed with discharge planning.
[2019-06-03 15:25] VITALS: BP 153/77
--- NOTE | 2019-06-03 19:12 | NUR ---
Patient is continuing with IV antibiotics and IV steroids. CXR order this am after o2 desaturation. Pt is on 5L NC. Patient met with SW and has an order for PT OT. Patient is slowly working towards dischage goals.
[2019-06-03 19:16] VITALS: BP 152/79
[2019-06-04 00:06] LABS: GLYCOHEMOGLOBIN (HGB A1C) 5.4 % (4.8-5.6)
[2019-06-04 03:35] VITALS: BP 173/89
--- NOTE | 2019-06-04 05:39 | NUR ---
PT IS A/OX4. OXYGEN SATS FELL INTO 80'S BEFORE PUTTING PT BACK ON HER BIPAP WITH 5 LITERS BLEEDING INTO IT. HOB RAISED TO 35 DEGREES AND A NEW 02 PROBE AND 02 SATS ARE ABOVE 95%. BOTH IV'S IN RIGHT WRIST AND FOREARM INFILTRATED. ESTABLISHED NEW ACCESS ON RIGHT UPPER CHEST. WILL CONTINUE TO MONITOR AND ASSESS THE SITE. FOLLOWING POC FOR IVPB. RESTARTED PTS OXYBUTIN AND METAXALONE. HOURLY ROUNDING AND CALL LIGHT PLACED IN PT HAND. URINE SAMPLE OBTAINED.
[2019-06-04 07:26] VITALS: BP 155/82
[2019-06-04 08:15] LABS: URINE BILIRUBIN NEGATIVE (Negative); URINE BLOOD NEGATIVE (Negative); URINE CLARITY CLEAR; URINE COLOR YELLOW; URINE GLUCOSE-RANDOM* NEGATIVE (Negative); URINE KETONES NEGATIVE (Negative); URINE LEUKOCYTES-REFLEX NEGATIVE (Negative); URINE NITRITE-REFLEX NEGATIVE (Negative); URINE PROTEIN (DIPSTICK) TRACE (Negative); URINE SPECIFIC GRAVITY 1.025 (1.005-1.035); URINE UROBILINOGEN 0.2 E.U./dl (0.2-1.0)
[2019-06-04 11:28] VITALS: BP 146/67
--- NOTE | 2019-06-04 14:06 | NUR ---
VISHAL reviewed chart and spoke with nursing and attending physician. Pt is on 7L of O2. Therapy has been ordered to work with pt for recommendations for discharge needs. SW met with pt at bedside to discuss discharge plan. SW discussed possible need for post-acute placement or home with HH. Pt is agreeable with considering [facility] if she is appropriate. Pt has been to [facility] in the past. SW also discussed HH services and provided options. Pt agreeable with a HH referral. No preference voiced for HH provider. Pt's PCP is Dr. Moy Chavarria. SW confirmed pt's address and phone number. VISHAL discussed case with [facility] rehabilitation nurse. SW faxed referral to [facility] and notified liaison of new referral. VISHAL is following to assist as needed with discharge planning..
[2019-06-04 15:37] VITALS: BP 140/69
--- NOTE | 2019-06-04 18:22 | NUR ---
Patient struggled this am with O2 desaturation with activity. She was up (briefly) with Ot and Pt, both times with anxiety and desaturating to the 80s. Patients's O2 was bumped to 7L NC with the patient's SPO2 slowly reaching and then resting in the low 90s. Patient was assisted with hygiene- patient has significant redness under her breasts and pannus. The left breast and left side of pannus had small fissures that were bleeding. Interdry was placed to protect red areas under breasts and pannus. Stool sample still pending- no BM. No BM since prior to admission. Miralax now scheduled and given today. PRN suppository available. Patient has talked with SW about transferring to [facility] or home with . She has a consult with the rehab MD ordered. Patient is working towards discharge goals.
[2019-06-04 19:32] VITALS: BP 150/68
--- NOTE | 2019-06-05 03:04 | NUR ---
ASSUMED CARE OF PATIENT AT 1900. VSS, AFEBRILE. BECOMES SOA EASILY WITH ANY ACTIVITY. WEARING CPAP AT NIGHT. C/O CHRONIC PAIN. WORRIED THAT PAIN IN FOOT IS INCREASING. STATES PO PAIN MEDICATION DOES HELP. STOOL SAMPLE SENT TO LAB, POSITIVE FOR OCCULT BLOOD. NO S/S OF BLEEDING. WILL NOTIFY PHYSICIAN IN AM OF RESULTS. NO OTHER CONCERNS AT THIS TIME. WORKING TOWARDS POC GOALS.
[2019-06-05 03:25] VITALS: BP 160/78
[2019-06-05 08:15] VITALS: BP 168/80
[2019-06-05 11:30] VITALS: BP 166/61
--- NOTE | 2019-06-05 14:30 | NUR ---
SW reviewed chart and spoke with nursing and attending physician. Pt is slowly progressing towards goals for discharge. Pt on 5L of O2. SW was notified by [facility] liaison, that pt has a [employer] Medicare replacement policy, which was active as of 06/03. [facility] is out of network with her [employer] policy. SW met with pt at bedside to provide update. Pt was unaware that she signed up for a [employer] policy. Pt became tearful and states that she is now concerned with copays and her hospital bill. Pt is agreeable with post-acute placement if needed at time of discharge. HOwever, her preference is to go home with HH. [facility] is out of network with [employer]. operations planner to fax info to [facility] for review. Pt agreeable wt referral to [facility] and/or [facility] if needed. VISHAL is following to assist as needed with discharge planning.
--- NOTE | 2019-06-05 15:46 | NUR ---
Pt is up in bedside recliner. Left foot xray done to assess left foot. PT/OT worked with patient.
[2019-06-05 17:21] VITALS: BP 164/71
[2019-06-05 19:15] VITALS: BP 195/96
[2019-06-06 03:48] VITALS: BP 155/64; BP 156/79
--- NOTE | 2019-06-06 05:55 | NUR ---
PATIENTS CARES WERE ASSUMED AT SHIFT CHANGE. PATIENT WAS ASSESSED AND MEDS WERE PASSED. PATIENT GOT UP HALF WAY IN THIS SHIFT TO SLEEP IN THE CHAIR. HOURLY ROUNDS WERE DONE. THE BED IS IN THE LOW AND LOCKED POSITION.
[2019-06-06 07:22] VITALS: BP 168/65
[2019-06-06 08:33] LABS: HEMATOCRIT 27.5 % (37.0-47.0); HEMOGLOBIN 8.6 gm/dL (12.0-15.0); MCHC 31.1 g/dL (28.0-37.0); MCV 70.6 fL (80.0-100.0); RBC 3.9 mil/uL (4.20-5.00); RDW 18.3 % (10.5-14.5)
[2019-06-06 08:44] LABS: CALCIUM 9.1 mg/dL (8.5-10.1); CREATININE 0.7 mg/dL (0.6-1.0); POTASSIUM 3.8 mmol/L (3.5-5.1)
--- NOTE | 2019-06-06 11:29 | NUR ---
Assess due to high BMI, 47.6 class III extreme obesity. Admit with chest pain and SOA, requiring O2. Pt blind, needs assistance ordering meals. Hx gastric sleeve surgery and reports overall loss about 145 lb and has maintained wt 240-250 lb for several years. Noted GI consult ordered for anemia. Low nutrition risk
[2019-06-06 12:03] VITALS: BP 149/68
--- NOTE | 2019-06-06 12:42 | NUR ---
ASSUMED CARE OF PATIENT APPROX. 1145. PT A&OX4, DENIES SOA, DENIES PAIN. PATIENT ON 6L O2 NASAL CANNULA. PATIENT RESTING IN RECLINER AND TOLERATING MEALS. WILL CONTINUE TO [facility].
--- NOTE | 2019-06-06 13:47 | NUR ---
SW reviewed chart and spoke with nursing and attending physician. Pt is slowly progressing towards goals for discharge. Pt remains on 5-6L of continuous O2. SW met with pt at bedside to discuss post-acute plans. Pt is agreeable with referral to rehab/SNF facilities. Pt requests referrals to [facility] and [facility]. Pt states her preference is [facility] due to location and her would be able to come visit her there. SW explained process for referral and need for insurance authorization. Pt verbalized understanding. assistant media planner faxed referral to [facility] for review. [facility] is in-network with pt's insurance. [facility] is also in-network. No weekend discharge planned. Discharge to post-acute planned for early next week. SW is following to assist as needed with discharge planning.
--- NOTE | 2019-06-06 14:31 | NUR ---
DISCHARGE PLANNING. ANTICIPATED DISCHARGE PLANNED FOR SUNDAY. REFERRAL FAXED TO [facility] FOR POST ACUTE CARE NEEDS PER PATIENT REQUEST. [facility] IS PATIENTS FIRST CHOICE. CALL RECEIVED FROM [facility]IA[facility]. JAD TO DO BEDSIDE EVAL WITH PATIENT THIS AFTERNOON AND NOTIFY CM. REFERRAL ALSO FAXED TO [facility], FOR PLAN B PER PATIENT REQUEST. [facility] AWARE THAT [facility] IS PATIENTS FIRST CHOICE. UNIT SW AWARE. FOLLOWING TO ASSIST.
[2019-06-06 15:38] VITALS: BP 163/63
[2019-06-06 19:18] VITALS: BP 182/81
[2019-06-06 19:49] LABS: % SATURATION 6 % (20-39); IRON 15 ug/dL (50-170); TIBC 266 ug/dL (250-450)
[2019-06-06 20:35] LABS: FOLIC ACID 10.3 ng/mL (8.6-58.9)
[2019-06-07 04:00] LABS: HEMATOCRIT 29.1 % (37.0-47.0); HEMOGLOBIN 8.9 gm/dL (12.0-15.0); MCH 21.7 pg (26.0-34.0); MCHC 30.7 g/dL (28.0-37.0); MCV 70.6 fL (80.0-100.0); RBC 4.12 mil/uL (4.20-5.00); RDW 18.2 % (10.5-14.5); WBC 7.9 thou/uL (4.0-11.0)
[2019-06-07 04:05] VITALS: BP 145/62
[2019-06-07 04:18] LABS: CALCIUM 8.7 mg/dL (8.5-10.1); CREATININE 0.7 mg/dL (0.6-1.0); MAGNESIUM 1.8 mg/dL (1.8-2.4); POTASSIUM 4.2 mmol/L (3.5-5.1)
--- NOTE | 2019-06-07 07:34 | NUR ---
PROGRESS PT A/O X4, LUNGS COARSE WITH DMINISHED BASES, IV TO LEFT BREAST FLUSHING WITHOUT DIFFICULTY. IV ANTIBIOTICS GIVEN ORDERED. RT TX'S SCHEDULED AND PRN PROVIDED. UP WITH SBA TO BSC OR BATHROOM. PT TEARFUL REGARDING GOING TO REHAB INSTEAD OF HOME DISCUSSED BENEFITS AND ADVISED PT TO TALK TO PHYSICIAN AND CM REGARDING HER CONCERNS. VSS, TELE INTACT CONTINUE POC.
[2019-06-07 07:42] VITALS: BP 149/67
[2019-06-07 11:03] VITALS: BP 159/64
[2019-06-07 15:58] VITALS: BP 158/67
--- NOTE | 2019-06-07 18:46 | NUR ---
ASSESSMENTS AND INTERVENTIONS DOCCUMENTED. PATIENT RESTING IN CHAIR DURING SHIFT CHANGE. PATIENT COMPLAINS OF PAIN, AND MEDICATION GIVEN. PATIENT IS READY TO DISCHARGE BUT WANTS TO CONTINUE TO GET BETTER. REPORT TO BE GIVEN TO RIFFLER TENDER NURSE.
[2019-06-07 19:30] VITALS: BP 181/84
[2019-06-07 21:30] VITALS: BP 157/57
--- NOTE | 2019-06-07 23:07 | NUR ---
ASSUMED PT CARE AROUND 1900. A&OX4. C/O CHRONIC PAIN. PRN PAIN MEDICATION GIVEN. PT REQUESTED TO STAY IN THE CHAIR TONIGHT. CHAIR ALARM ON. PT STATED HER BREATHING FEELS BETTER TONIGHT. REPORT GIVEN TO WILDER BELTRE AT 2300. PROGRESSING TOWARD POC GOALS.
[2019-06-08 04:00] VITALS: BP 150/69
--- NOTE | 2019-06-08 05:49 | NUR ---
Assumed care of pt at 2300 last pm and slept well all night. VS stable and SpO2 adequate on current FiO2. PRN oxycodone given for generalized pain with desired effect achieved. Large amount of urine output for shift. Continue with POC.
[2019-06-08 08:13] VITALS: BP 138/67
[2019-06-08 11:05] VITALS: BP 159/72
[2019-06-08 14:58] VITALS: BP 153/62
--- NOTE | 2019-06-08 15:31 | NUR ---
pt's assessment has done, pt is A&OX3, but pt is blind and she needs help ADL, pt is continuing IV abx and pain management, pt's o2 has titrated to 2L/min/nc, PT 's vs and o2sat are stable, pt has slowly meeting care plan goals.
[2019-06-08 18:57] VITALS: BP 131/53
[2019-06-09] VITALS (7 sets, daily range): BP systolic 137–183; BP diastolic 58–64
--- NOTE | 2019-06-09 06:10 | NUR ---
Pt. slept well in the recliner chair all night with BIPAP on otherwise she is on 3L/NC. Medicated for pain with some relief. Up with assist x 1 to BSC. Afebrile. Pt. is blind and needs set up and guidance. Denies any concern at this time. Making progress towards care plan goals.
--- NOTE | 2019-06-09 09:54 | NUR ---
planner/scheduler sent updates to [facility], patient should be ready for discharge today, we need authorization. DP will call facility to make certain they received updates.
--- NOTE | 2019-06-09 10:35 | NUR ---
VISHAL reviewed chart and spoke with nursing. Pt remains on continuous O2. shoe planner faxed clinical/therapy updates to [facility] for review. [facility] had submitted for insurance auth on Sunday. Therapy states that pt may be able to return home. Pt prefers to go home with HH now. SW to discuss with attending physician. VISHAL faxed face sheet to [facility] for review to determine if they accept pt's insurance. shoe planner to fax face sheet to [facility] to see if they are in-network for home O2. VISHAL is following to assist as needed with discharge planning.
[2019-06-09] MEDS ORDERED: BANOPHEN25 M1 PO (14:18)
[2019-06-09] MEDS ORDERED: IPRAT-ALBUT 0.5-3 ML INH (14:19)
[2019-06-09] MEDS ORDERED: ADULT SUPPOSIT1 EACH RECTAL (14:20)
[2019-06-09] MEDS ORDERED: PULMICORT0.5 MG/21 INH (14:20)
[2019-06-09] MEDS ORDERED: AUGMENTIN 875-1 EACH PO (16:03)
[2019-06-09] MEDS ORDERED: PREDNISONE 10 M10 MG PO (16:03)
--- NOTE | 2019-06-09 17:42 | NUR ---
ASSUMED PATIENT CARE AT 0700. A/0 X4. NOT ABLE TO TITRATED 02 DOWN. PATIENT RA 02 SAT 80. SOB WITH EXERTION. SLOWLY TOWARDS POC GOALS. WILL DC TO HOME WITH HH SOON.
[2019-06-10 04:04] VITALS: BP 174/86
--- NOTE | 2019-06-10 04:19 | NUR ---
Pt. very upset and crying at shift change due to discharge hat got cancelled. She eventually calm down and allowed us to put monitor back on but requested not to start IV. PHOTOGRAPHIC PROCESS WORKER notified and IV ABT changed to po and first dose given at HS.O2 at 3L/NC with 2 sat in the low 90s. Verbalized she gets shor of breath with exertion but better than what it has been.She also stated she feels a lot stronger and ready to go home. Medicated for generalized pain with some relief. She stated she slept well during the night. She slept in recliner chair. Up with assist x1 to BSC. Progressing towards care plan goals.
[2019-06-10 07:26] VITALS: BP 134/63
--- NOTE | 2019-06-10 10:23 | NUR ---
Patient was to dc home yesterday 06/09/19, patient will dc today instead 06/10/19. DP called to let [facility]'s know that patient dc today instead and asked if they needed anything. GABRIELLA spoke with Elvira and she will let her nurses know dc home today and they do not need anything else from us now.
--- NOTE | 2019-06-10 10:24 | NUR ---
ON-GOING ASSESSMENT: BEDSIDE RN CONTACTED RN ABOUT CONFUSION WITH HOME OXYGEN. CM REACHED OUT TO [facility] TO FOLLOW UP ON OXYGEN FOR HOME AND THEY STATED THEY NEEDED THE ORDER AND TESTING FOR OXYGEN NEEDS. CM FAXED UPDATED FACESHEET WHERE [employer] # IS LISTED. CM SPOKE WITH PRE-CERT AND VERIFIED THAT PRIMARY INSURANCE IS [employer] AND IT IS ACTIVE. CM NOTIFIED MARIEL LIASON AND FAXED RX/TESTING. HE REPORTS THEY HAVE EVERYTHING THEY NEED. CM MET WITH PATIENT AND NOTIFIED HER. PT IS LEGALLY BLIND WELL AND REPORTS THAT SHE NEEDS TRANSPORTATION HOME. PT ALSO WANTING TO GET HER RX FILLED HERE AT [facility]. CM EXPLAINED RX CAN BE FAXED TO [facility] AND THEY WILL CALL IF PATIENT HAS A COPAY THAT PT WILL HAVE TO PAY AND THEN WE CAN GATHER PATIENTS RX PRIOR TO DISCHARGE. PT WILL THEN NEED A CAB CALLED FOR HER. PT STATING HER IS AT HOME AND CAN HELP HER. CM WILL WAIT FOR CALL FROM PHARMACY WHEN RX ARE READY.
[2019-06-10] MEDS ORDERED: B12INJ IM (11:14)
--- NOTE | 2019-06-10 17:26 | NUR ---
Patient was discharged to home this afternoon.
[2019-06-11] MEDS ORDERED: LEVO-T75 MCG PO ×2 (13:27→13:35)
[2019-06-11] MEDS ORDERED: ADULT SUPPOSIT1 EACH RECTAL (13:35)
[2019-06-11] MEDS ORDERED: IPRAT-ALBUT 0.5-3 ML INH (13:35)
[2019-06-11] MEDS ORDERED: PULMICORT0.5 MG/21 INH (13:35)
[2019-06-11] MEDS ORDERED: BANOPHEN25 M1 PO (13:35)
[2019-06-11] MEDS ORDERED: AUGMENTIN 875-1 EACH PO (13:35)
[2019-06-11] MEDS ORDERED: PREDNISONE 10 M10 MG PO (13:42)
== END 2019-06-10 13:30 | disposition home health service (06) | DRG 871 ==
LOC: ER 12:23 → 3W 14:13 → EROBS 14:13 → 3W 20:56 → ENTRNSPT 06-10 13:04 → EDTRNSPTSTS 06-10 13:07 → 3W 06-10 13:30
PROVIDERS: Emergency Medicine; Internal Medicine; Nurse Practitioner Family; ADMIT Internal Medicine
PROC: 5A09357 Assistance with Respiratory Ventilation, Less than 24 Consecutive Hours, Continuous Positive Airway Pressure (ICD-10-PCS; principal; 2019-06-01)
PROC: 5A09357 Assistance with Respiratory Ventilation, Less than 24 Consecutive Hours, Continuous Positive Airway Pressure (ICD-10-PCS; 2019-06-02)
PROC: 5A09357 Assistance with Respiratory Ventilation, Less than 24 Consecutive Hours, Continuous Positive Airway Pressure (ICD-10-PCS; 2019-06-03)
PROC: 5A09357 Assistance with Respiratory Ventilation, Less than 24 Consecutive Hours, Continuous Positive Airway Pressure (ICD-10-PCS; 2019-06-04)
PROC: 5A09357 Assistance with Respiratory Ventilation, Less than 24 Consecutive Hours, Continuous Positive Airway Pressure (ICD-10-PCS; 2019-06-05)
PROC: 5A09357 Assistance with Respiratory Ventilation, Less than 24 Consecutive Hours, Continuous Positive Airway Pressure (ICD-10-PCS; 2019-06-06)
DX: A41.9 Sepsis, unspecified organism (principal); J15.6 Pneumonia due to other Gram-negative bacteria; R65.21 Severe sepsis with septic shock; J96.21 Acute and chronic respiratory failure with hypoxia; J44.1 Chronic obstructive pulmonary disease with (acute) exacerbation; J44.0 Chronic obstructive pulmonary disease with (acute) lower respiratory infection; I50.32 Chronic diastolic (congestive) heart failure; Z68.42 Body mass index [BMI] 45.0-49.9, adult; E11.319 Type 2 diabetes mellitus with unspecified diabetic retinopathy without macular edema; M79.7 Fibromyalgia; M19.90 Unspecified osteoarthritis, unspecified site; K21.9 Gastro-esophageal reflux disease without esophagitis; I11.0 Hypertensive heart disease with heart failure; E66.01 Morbid (severe) obesity due to excess calories; E03.9 Hypothyroidism, unspecified; D50.9 Iron deficiency anemia, unspecified; E53.8 Deficiency of other specified B group vitamins; H54.7 Unspecified visual loss; G47.33 Obstructive sleep apnea (adult) (pediatric); G25.81 Restless legs syndrome; E78.00 Pure hypercholesterolemia, unspecified; I48.91 Unspecified atrial fibrillation; Z87.01 Personal history of pneumonia (recurrent); Z87.891 Personal history of nicotine dependence; Z86.14 Personal history of Methicillin resistant Staphylococcus aureus infection; Z90.49 Acquired absence of other specified parts of digestive tract; Z90.710 Acquired absence of both cervix and uterus; Z90.722 Acquired absence of ovaries, bilateral; Z91.14 Patient's other noncompliance with medication regimen; Z90.01 Acquired absence of eye; Z98.84 Bariatric surgery status; Z79.82 Long term (current) use of aspirin; Z79.899 Other long term (current) drug therapy; Z88.8 Allergy status to other drugs, medicaments and biological substances; Z83.3 Family history of diabetes mellitus; Z82.49 Family history of ischemic heart disease and other diseases of the circulatory system; Z23 Encounter for immunization
CPT/HCPCS: 10879

== ENCOUNTER → 2019-09-24 | Outpatient (CLI) | payer OTHER ==
[~2019-09-24] MED LIST changes: +ADULT SUPPOSIT1 EACH RECTAL; +AUGMENTIN 875-1 EACH PO; +B12INJ IM; +BANOPHEN25 M1 PO; +BREO ELLIPTA 11 EACH INH; +COMBIVENT INH; +ERGOCALCIF50000 UNIT PO; +IPRAT-ALBUT 0.5-3 ML INH; +LEVO-T75 MCG PO; +MIRALAX17 GM PO; +NORVASC5 MG PO; +OXYBUTYNIN 5 MG5 M2 PO; +PULMICORT FLEX90 MCG INH; +PULMICORT0.25 MG/2 INH; +PULMICORT0.5 MG/21 INH; +TOPROL XL25 MG PO; +TRAMADOL 50 MG50 MG PO; +VENTOLIN HFA INH8 GM INH
== END ==
LOC: SJCVC 13:58
DX: I44.0 Atrioventricular block, first degree (principal); R00.1 Bradycardia, unspecified; I47.1 Supraventricular tachycardia; I11.0 Hypertensive heart disease with heart failure; I50.9 Heart failure, unspecified; K21.9 Gastro-esophageal reflux disease without esophagitis; E78.5 Hyperlipidemia, unspecified; E03.9 Hypothyroidism, unspecified; J45.909 Unspecified asthma, uncomplicated; E11.9 Type 2 diabetes mellitus without complications; M19.90 Unspecified osteoarthritis, unspecified site; Z79.899 Other long term (current) drug therapy; Z87.891 Personal history of nicotine dependence